=== PATIENT | female | born 1960 | race Caucasian/White ===

== ENCOUNTER → 2017-10-06 09:14 | Outpatient (CLI) | payer BC, SELFPAY ==
--- NOTE | 2017-10-06 09:19 | DI.MG.S_ITS ---
BILATERAL DIGITAL DIAGNOSTIC MAMMOGRAM 3D/2D: 10/06/2017 CLINICAL: Left breast itchyness. Family history of breast cancer. Comparison is made to exams dated: 06/14/2016 mammogram, 04/17/2015 mammogram - [facility], and 11/29/2013 mammogram - [facility]. The tissue of both breasts is heterogeneously dense. This may lower the sensitivity of mammography. There is a new 0.5 cm oval low density asymmetry with an indistinct margin and clustered fine calcifications in the left breast at 6 o'clock posterior depth. No other significant masses, calcifications, or other findings are seen in either breast. IMPRESSION: INCOMPLETE: NEEDS ADDITIONAL IMAGING EVALUATION The new 0.5 cm oval low density asymmetry in the left breast is indeterminate. An ultrasound is recommended. There is no abnormality seen in the left breast to correspond with the area of clinical concern on the skin, however, clinical followup is recommended. This exam was interpreted at Station ID: [id number]. NOTE: For mammograms, a report in lay terms will be sent to the patient. Approximately 15% of breast malignancies will not be visualized mammographically. In the management of a palpable breast mass, a negative mammogram must not discourage biopsy of a clinically suspicious lesion. Electronically Signed By: Rupesh bose/corazon:10/06/2017 10:44:44 letter sent: Need Ultrasound ACR BI-RADS Category 0: Incomplete 3340F
--- NOTE | 2017-10-06 09:19 | DI.US.S_ITS ---
ULTRASOUND OF LEFT BREAST AND LEFT AXILLA: 10/06/2017 CLINICAL: Patient returns for additional imaging over a suspected mass in the left breast. Comparison is made to exams dated: 10/06/2017 mammogram, 06/14/2016 mammogram, 12/01/2015 mammogram, and 12/01/2015 [facility]. Color flow and real-time ultrasound of the left breast and axilla were performed on the areas of interest. There is a 6 mm lobulated mass in the left breast at 6 o'clock posterior depth. This lobulated mass is hypoechoic. No abnormalities were seen sonographically in the left axilla. IMPRESSION: SUSPICIOUS OF MALIGNANCY - FOLLOW-UP RECOMMENDED The 6 mm lobulated mass in the left breast is at a low suspicion for malignancy. An ultrasound guided biopsy is recommended. The findings and recommendations were discussed with the patient prior to leaving the facility. Findings were also discussed with Dr. Case by phone at 1200 on 10/06/2017. This exam was interpreted at Station ID: [id number]. Electronically Signed By: Ed hartman/:10/06/2017 12:09:29 letter sent: Biopsy Required Ultrasound BI-RADS: 4a Suspicious abnormality - low suspicion for malignancy
== END ==
PROVIDERS: PCP Specialist; Visit Provider Specialist
DX: R92.8 Other abnormal and inconclusive findings on diagnostic imaging of breast (principal); L29.9 Pruritus, unspecified; Z80.3 Family history of malignant neoplasm of breast; N63.20 Unspecified lump in the left breast, unspecified quadrant
CPT/HCPCS: 76642; 77066; G0279

== ENCOUNTER → 2017-10-17 07:54 | Outpatient (CLI) | payer BC, SELFPAY ==
--- NOTE | 2017-10-17 | PATH_ITS ---
[facility] Accession Number: [id number] . 01 Material submitted: . LEFT BREAST MASS . 01 Clinical history: . 6 O'CLOCK POSTERIOR TO NIPPLE . 02 Diagnosis: Left Breast Needle Core Biopsy, 6 o'clock, Posterior to the Nipple: Fragments of benign breast tissue including lobules and ducts with no evidence of significant atypia or malignancy. Negative for microcalcifications. MRV/10/20/2017 . 02 Electronically signed: . Aníbal Restrepo MD, Pathologist NPI- [id number] . 01 Gross description: . Received one formalin-filled container, labeled with the patient's name, labeled breast. The specimen is received with a plastic filter, sample loose in container. The specimen consists of multiple portions of yellow-witt tissue and clotted blood which aggregate to 1.5 x 0.5 x 0.2 cm. The specimen is filtered and entirely submitted in one cassette. Collection date: 10/17/2017. Collection time per container: 9:20 a.m. Total fixation time: 12 hours, up to 24. ([id number]) /FRR . 02 Pathologist provided ICD-10: R92.8 . 02 CPT . 674238 Performed at: 01 [facility] [address], [place], [place] [id number] MD Rupesh Mays MD Phone: [phone] Performed at: 02 [facility] [address] [place], [place] [id number] MD Gurdeep Jean-Baptiste MD Phone: [phone]
--- NOTE | 2017-10-17 07:55 | DI.MG.S_ITS ---
UNILATERAL LEFT DIGITAL DIAGNOSTIC MAMMOGRAM POST-NEEDLE BIOPSY: 10/17/2017 CLINICAL: Post clip placement. Comparison is made to exams dated: 10/06/2017 mammogram, 06/14/2016 mammogram, 04/17/2015 mammogram, and 10/17/2017 ultrasound biopsy - [facility]. Current study contains 2 films. The tissue of the left breast is heterogeneously dense. This may lower the sensitivity of mammography. There is a marker clip in the appropriate position in the left breast at 6 o'clock posterior depth. This marker clip placement is at biopsy site. However, the biopsy site is situated well away from the original mammographic lesion of concern, containing microcalcifications. IMPRESSION: POST PROCEDURE MAMMOGRAM FOR MARKER PLACEMENT There was a successful marker clip placement in the left breast posterior depth. However, ultrasound biopsy site is discordant from mammographic finding. As such, stereotactic biopsy is recommended of the original mammogram finding, to [facility] scheduled [facility]. Findings and recommendations were discussed with the patient at the time of study, as well as with nurse for Dr. Alyssa Case. This exam was interpreted at Station ID: [id number]. NOTE: For mammograms, a report in lay terms will be sent to the patient. Approximately 15% of breast malignancies will not be visualized mammographically. In the management of a palpable breast mass, a negative mammogram must not discourage biopsy of a clinically suspicious lesion. Electronically Signed By: Tyrell Ordaz M.D. hpw/:10/17/2017 10:25:46 ACR BI-RADS Category Post-procedure mammogram for marker placement
--- NOTE | 2017-10-17 07:55 | DI.US.S_ITS ---
ULTRASOUND GUIDED BIOPSY LEFT BREAST USING VACUUM DEVICE WITH MARKING DEVICE INSERTED AND POST DIGITAL MAMMOGRAPHIC AND ULTRASOUND IMAGIN10/17/2017 CLINICAL: Left breast mass. PATIENT CONSENT: Risks (minor bleeding, infection, vasovagal reaction and repeat procedure), benefits and alternatives were explained to the patient and written informed consent was obtained. Correlation is made to exams dated: 10/06/2017 ultrasound, 10/06/2017 mammogram, and 06/14/2016 mammogram - [facility]. An ultrasound guided biopsy using real-time ultrasound was performed for the concerning 0.4 cm oval solid mass located in the left breast at 6 o'clock posterior depth. This was described on the previous mammography and ultrasound reports. The skin was prepped in the usual manner. Local anesthetic was administered to the access site. A small incision was made in the breast. The abnormality was approached from the lateral aspect. A 13 gauge biopsy needle was placed adjacent to the abnormality under ultrasound guidance. Once the needle was documented to be in the correct location, four specimens were obtained using the Mammotome biopsy system. The patient received additional local anesthetic during the procedure. An A [employer]rom[employer] titanium clip which is sonographically visible for 8 months, lal the biopsy site. clip was inserted into the biopsy cavity. A skin adhesive, a skin closure strip, and a sterile dressing were applied to the access site. Post procedure digital mammographic and ultrasound imaging demonstrates the clip at the targeted area. The specimens were sent to the laboratory for pathological analysis. IMPRESSION: ULTRASOUND GUIDED BIOPSY BENIGN Ultrasound guided biopsy of the 0.4 cm solid mass in the left breast at 6 o'clock posterior depth was successful. Pathology indicates benign breast tissue. Please note, the biopsy site is discordant with the mammography findings. Re-biopsy under stereotactic guidance is recommended. This was discussed with Debbie Mendosa RN on 10/21/17. This exam was interpreted at Station ID: [id number]. Tyrell bentley,drew/:10/21/2017 14:51:23
== END ==
PROVIDERS: PCP Specialist; Visit Provider Specialist
DX: N63.20 Unspecified lump in the left breast, unspecified quadrant (principal)
CPT/HCPCS: 19083; 77065

== ENCOUNTER → 2020-01-19 11:53 | Outpatient (CLI) | payer BC, SELFPAY ==
--- NOTE | 2020-01-19 12:18 | DI.MG.S_ITS ---
Patient Name: MELODY SEYMOUR date: 1960 Sex: F Attending Physician: Manpreet Indications: Date: 01/19/2020 11:56 At the request of: KIM WHITE Procedure: MM screening mammo BI BILATERAL DIGITAL SCREENING MAMMOGRAM 3D/2D WITH CAD: 01/19/2020 CLINICAL: Routine screening. Family history of breast cancer. Comparison is made to exams dated: 10/17/2017 mammogram, 10/06/2017 mammogram, 06/14/2016 mammogram, 12/01/2015 mammogram, 05/03/2015 mammogram, and 04/17/2015 mammogram - [facility]. The tissue of both breasts is heterogeneously dense. This may lower the sensitivity of mammography. Current study was also evaluated with a Computer Aided Detection (CAD) system. There is a biopsy clip in the left breast. No significant masses, calcifications, or other findings are seen in either breast. There has been no significant interval change. IMPRESSION: NEGATIVE There is no mammographic evidence of malignancy. A 1 year screening mammogram is recommended. This exam was interpreted at Station ID: [id number]. NOTE: For mammograms, a report in lay terms will be sent to the patient. Approximately 15% of breast malignancies will not be visualized mammographically. In the management of a palpable breast mass, a negative mammogram must not discourage biopsy of a clinically suspicious lesion. Electronically Signed By: Sharri russell/corazon:01/19/2020 14:57:44 letter sent: Normal Exam ACR BI-RADS Category 1: Negative [id number] Continued Report - Page 2 of 2 Patient Name: MELODY SEYMOUR date: 1960 Sex: F Attending Physician: Manpreet Indications: Date: 01/19/2020 11:56 At the request of: KIM WHITE Procedure: MM screening mammo BI
== END ==
PROVIDERS: PCP Specialist; Referring Provider Specialist; Visit Provider Specialist
DX: Z12.31 Encounter for screening mammogram for malignant neoplasm of breast (principal); Z80.3 Family history of malignant neoplasm of breast
CPT/HCPCS: 77063; 77067

== ENCOUNTER → 2021-01-25 13:58 | Outpatient (CLI) | payer BC, SELFPAY ==
--- NOTE | 2021-01-25 14:01 | DI.MG.S_ITS ---
BILATERAL DIGITAL SCREENING MAMMOGRAM 3D/2D WITH CAD: 01/25/2021 CLINICAL: Routine screening. Family history of breast cancer. Comparison is made [facility], 10/24/2017 [facility], 10/17/2017 mammogram, and 10/06/2017 [facility]. The tissue of both breasts is heterogeneously dense. This may lower the sensitivity of mammography. Current study was also evaluated with a Computer Aided Detection (CAD) system. There are benign calcifications in both breasts. There also is a biopsy clip in the left breast. No significant masses, calcifications, or other findings are seen in either breast. There has been no significant interval change. IMPRESSION: BENIGN There is no mammographic evidence of malignancy. A 1 year screening mammogram is recommended. This exam was interpreted at Station ID: [id number]. NOTE: For mammograms, a report in lay terms will be sent to the patient. Approximately 15% of breast malignancies will not be visualized mammographically. In the management of a palpable breast mass, a negative mammogram must not discourage biopsy of a clinically suspicious lesion. Electronically Signed By: Rupesh bose/corazon:01/25/2021 14:31:09 letter sent: Normal Exam ACR BI-RADS Category 2: Benign Finding(s) 3342F
== END ==
PROVIDERS: PCP Specialist; Referring Provider Specialist; Visit Provider Specialist
DX: Z12.31 Encounter for screening mammogram for malignant neoplasm of breast (principal); Z80.3 Family history of malignant neoplasm of breast
CPT/HCPCS: 77063; 77067